=== PATIENT | male | born 1955 | race Caucasian/White ===

== ENCOUNTER 2022-10-06 08:45 | Outpatient (CLI) | payer MEDICARE, SELFPAY ==
[2022-10-06 12:48] LABS: Chloride* 105 mmol/L (96-114); Potassium* 4.7 mmol/L (3.6-5.1); Sodium* 139 mmol/L (135-149)
[2022-10-06 12:51] LABS: Creatinine* 0.9 mg/dL (0.5-1.5); Estimated Glomerular Filt Rate 92 ml/min
[2022-10-06 12:52] LABS: Blood Urea Nitrogen* 17 mg/dL (7-30); Calcium* 9.5 mg/dL (8.4-10.6); Carbon Dioxide* 29 mmol/L (20-32); Glucose* 83 mg/dL (60-115)
[2022-10-06 13:19] LABS: PSA Screen* 8.94 ng/mL (0.10-4.00)
== END 2022-10-06 08:46 | disposition home or self-care (01) ==
PROVIDERS: PCP Family Medicine; Visit Provider Family Medicine
DX: R97.20 Elevated prostate specific antigen [PSA] (principal); Z13.1 Encounter for screening for diabetes mellitus
CPT/HCPCS: 80048; 84153

== ENCOUNTER 2023-10-03 13:51 | Outpatient (CLI) | payer OTHER, SELFPAY ==
--- OUTSIDE RECORDS SUMMARY | 2023-10-03 13:56 | XMS_ITS | Continuity of Care Document ---
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 Role Phone Gerhard FLORES Donavan Unavailable Unavailable Allergies, Adverse Reactions, Alerts Substance Reaction Status Criticality No Known Allergies Active No Inform ation Medications Medication Instructions Dosage Effective Dates (start - stop) Status Comments hydrocodone 5 mg-acetaminophen 325 mg tablet take 1 tablet by oral route every 6 hours as needed for pain 1.00 tablet - Active PIROXICAM (unknown strength) Not Available - Active LUNESTA (unknown strength) Not Available - Active CIALIS (unknown strength) Not Available - Active Procedures Procedure Date Office/Outpatient Visit,[facility] 2019 Advance Directives Directive Yes / No Effective Date File Name No Information Encounters Encounter Description Practice Location Reason(s) For Visit Diagnoses Date Provider Providers Copied on Encounter [facility], [address], [place], [place], [id number], [place] tel:[phone] [facility] No Information Sep- 0 Panvica Donavan. [facility], [address] [place] [address], [address], [place], [place], [id number] , [place]. tel:[phone] Office/Outpat ient Visit,New, Mod [facility], [address], [place], [place], [id number], [place] tel:[phone] [facility] [place] Radiculopathy , lumbosacral regionSpinal stenosis, lumbar region with neurogenic claudicationS pondylolisthe sis, lumbar region Sep- 0 Panvica Donavan. [facility] [employer] [facility], [address], [address], [place], [place], [id number] , [place]. tel:[phone] Referring Provider: Vivek Maldonado, [facility] [address] [facility], [place], [address]. tel:[phone] Family History Family Member Type Diagnosis Age At Onset No Information Payers Payer name Insurance type Covered green party ID Authoriza tion(s) [employer] Medicare [facility] CI [id number] Social History Type Description Quantity Date Captured Comments Sex Male Smoking Status No Information Chief Complaint And Reason For Visit No Information Reason For Referral Reason For Referral No Information History Of Present Illness Encounter Date Complaint History Of Prese nt Illness No Information Functional Status Date Functional Assessmen t No Information Instructions Date Instruction Additional Infor mation No Information Assessments Type Assessment Date No Information Patient Care Teams Name Effective Dates (start - stop) Status Members No Information
== END 2023-10-03 13:52 | disposition home or self-care (01) ==
PROVIDERS: PCP Family Medicine; Visit Provider Family Medicine
DX: Z01.818 Encounter for other preprocedural examination (principal)
CPT/HCPCS: 80048; 80061; 80076

== ENCOUNTER 2025-05-13 12:49 | Outpatient (RCR) | payer MEDICARE, SELFPAY ==
--- NOTE | 2025-05-13 14:02 | PT.OPE ---
PT [place] Outpatient Eval PT [facility] Outpatient Eval Start: 05/13/25 13:59 Freq: Status: Active Protocol: Document 05/13/25 13:59 CHEL (Rec: 05/13/25 14:01 CHEL [id number]) E-signed By Eh Mendes DPT, MS Physical Therapy Outpatient Evaluation Insurance Information Recert Due Date 08/11/25 Insurance Name Medicare B,[facility] Medical Diagnosis Dizziness and giddiness Treating Diagnosis L posterior canal BPPV, sensory disorganization, imbalance Subjective Subjective Pt is a 69 y.o. male who presents to PT with positional vertigo over the past 3-4 weeks of insidious origin. Sxs first started getting out of bed with high levels of dizziness and nausea with pt fearful of a stroke or neurological condition. Sx intensity has improved with moving slower and avoiding looking up/ down. 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 Describes symptoms as spinning dizziness lasting 2-5 seconds with head position changes. Denies previous episodes of dizziness but his daughter has had BPPV a few times. Pt denies recent visual or hearing changes. PMH includes CS tightness and OA, prostate CA in remission, and previous hip and shoulder surgeries AGGR factors: supine<>sit transfers, balance in dark and uneven surfaces, quick head movements, rolling to the L . ALLEV factors: slow movements. Pt hopes to learn what is causing dizziness sxs and to eliminate dizziness to improve safety. Scheduled for a future MRI but is unsure if he shoulder keep his appt based on positional dizziness dx. Pain Comments None - mod dizziness Current Work Status Retired Precautions Therapy Limitations/ Not Limited Systems Review Objective Functional Test DHI: 62 Performed & Score Assessment Assessment/ Pt displays signs and symptoms consistent with L Impression posterior canalithiasis BPPV. + L [place] Hall[place] testing . Following canalith repositioning maneuver x 2 he presented as resolved for L posterior canal BPPV with decreased subjective dizziness with amb following today ?s session. Sensory disorganization found with testing which is consistent with peripheral vertigo. He is mild a falls risk based on her score on the 4-item Dynamic Gait Index test. All other neurological testing otherwise normal. Recommended pt avoid sustained flex or ext head positions over the next 48 hours. She would benefit from continued skilled therapy to address these limitations. Primary Functional Supine<>sit transfers, balance in dark and uneven Limitations surfaces, quick head movements, rolling to the L. Plan of Care Physical Therapy 1.Patient will display resolution of L posterior Goals canalithiasis BPPV symptoms for >5 consecutive days to improve safety with pickleball and all daily activities . 2.Pt will display improved balance on compliant surfaces with minimal sway to decrease falls risk with amb. 3. Pt will report >75% improvement in DHI questionnaire to significantly improve tolerance to functional activities. Treatment Plan/ Canalith Repositioning,Neuromuscular Re-ed,Therapeutic Direct Interventions Exercises Frequency/Duration 1x per week for 6-10 visits Patient Will Be Completion of LTG(s),Skills Plateau,Independent w/HEP, Discharged From Independently Progressing Therapy Evaluation Billing Untimed Code 25 Treatment Minutes Complexity Moderate Certification Information Initial 05/13/25 Certification Date Ending Certification 08/11/25 Date Provider Signature Yes Required Provider Signature POC & Medical Necessity Shows Agreement With Physician NPI Number Write NPI# Here Physician Comment/ : Change Physician Signature Please Sign/Date Here & Date Requested
== END 2025-09-10 23:59 | disposition home or self-care (01) ==
PROVIDERS: PCP Family Medicine; Visit Provider Nurse Practitioner Family
DX: H81.12 Benign paroxysmal vertigo, left ear (principal); Z51.89 Encounter for other specified aftercare
CPT/HCPCS: 97162